=== PATIENT | female | born 1965 | race Caucasian/White ===

== ENCOUNTER → 2016-06-23 | Outpatient (CLI) | payer BC ==
[~2016-06-23] VITALS: Ht 175.3 cm; Wt 77.1 kg
[~2016-06-23] MED LIST: BUPR150T3 PO; CLAR5TAB PO; FLUT1SPR2; LOSA25TA8 PO; NAPR500T PO; NS 1,000 ML IV SCH; PROPOFOL 200 MG/20 ML VIAL As Ordered ONE; TRAZ50TA4 PO; TYLE325T5 PO; [UNRECOGNIZED DRUG - CODE] PO
--- NOTE | 2016-06-23 08:58 | ROOR ---
Patient Name: Shauna Gifford Procedure Date: 06/23/2016 8:38 AM Date of : 1965 Age: 50 Room: [facility] Gender: Female Note Status: Finalized Procedure: Colonoscopy to Cecum Indications: Screening for colorectal malignant neoplasm Providers: Erasmo Lin MD Referring MD: [facility], Admin. Requesting Provider: Medicines: Monitored Anesthesia Care Complications: No immediate complications. Procedure: Pre-Anesthesia Assessment: - The heart rate, respiratory rate, oxygen saturations, blood pressure, adequacy of pulmonary ventilation, and response to care were monitored throughout the procedure. The Colonoscope was introduced through the anus and advanced to the cecum, identified by appendiceal orifice and ileocecal valve. The colonoscopy was performed without difficulty. The patient tolerated the procedure well. The quality of the bowel preparation was excellent. Findings: The perianal and digital rectal examinations were normal. Non-bleeding internal hemorrhoids were found during retroflexion. The hemorrhoids were small and Grade I (internal hemorrhoids that do not prolapse). Scattered small-mouthed diverticula were found in the recto-sigmoid colon, sigmoid colon and descending colon. The exam was otherwise without abnormality on direct and retroflexion views. Impression: - Non-bleeding internal hemorrhoids. - Diverticulosis in the recto-sigmoid colon, in the sigmoid colon and in the descending colon. - The examination was otherwise normal on direct and retroflexion views. - No specimens collected. - The exam was otherwise normal to the cecum. Recommendation: - Patient has a contact number available for emergencies. The signs and symptoms of potential delayed complications were discussed with the patient. Return to normal activities tomorrow. Written discharge instructions were provided to the patient. - Discharge patient to home. - Continue present medications. - Repeat colonoscopy in 10 years for screening purposes. - Return to referring physician. - The findings and recommendations were discussed with the patient's family. Erasmo Lin MD Erasmo Lin MD 06/23/2016 8:57:50 AM This report has been signed electronically. Number of Addenda: 0 Note Initiated On: 06/23/2016 8:38 AM Estimated Blood Loss: Estimated blood loss: none.
[2016-06-23 09:20] VITALS: BP 138/98
== END ==
LOC: M OPP 07:49
PROVIDERS: ATTEND Internal Medicine Gastroenterology
DX: Z12.11 Encounter for screening for malignant neoplasm of colon (principal); K64.0 First degree hemorrhoids; K57.30 Diverticulosis of large intestine without perforation or abscess without bleeding; Z88.5 Allergy status to narcotic agent
CPT/HCPCS: 99156; G0121

== ENCOUNTER 2020-12-20 00:26 | Emergency (ER) | payer BC ==
[~2020-12-20] VITALS: Ht 175.3 cm; Wt 86.4 kg
[~2020-12-20 00:26] MED LIST changes: +BUPR150T12 PO; -BUPR150T3 PO; +D32000CA PO; +LOSA25TA14 PO; -LOSA25TA8 PO; +NAPR-837 PO; -NAPR500T PO; -NS 1,000 ML IV SCH; -PROPOFOL 200 MG/20 ML VIAL As Ordered ONE; +TRAZ-252 PO; -TRAZ50TA4 PO; -[UNRECOGNIZED DRUG - CODE] PO
[2020-12-20] MEDS ORDERED: fentaNYL 100 MCG/2 ML INJECTION (J3010) IV ONE (00:45)
--- NOTE | 2020-12-20 03:16 | REPVR ---
PROCEDURE INFORMATION: Exam: XR Chest Exam date and time: 12/20/20 (1:17am) Age: 55 years old Clinical indication: Trauma TECHNIQUE: Imaging protocol: Portable CXR Views: 1 view COMPARISON: Portable CXR of 01/27/15 FINDINGS: Lungs: Unremarkable. No consolidation. Pleural spaces: Unremarkable. No pleural effusions. No pneumothorax. Heart/Mediastinum: Unremarkable. No cardiomegaly. Bones/joints: Unremarkable. IMPRESSION: No acute findings. Lung pfeiffer remain clear. Electronically signed by: Kaleigh Beltrán On 12/20/2020 03:15:39 AM
[2020-12-20 03:30] VITALS: BP 114/73
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
== END 2020-12-20 03:38 | disposition short-term general hospital (02) ==
LOC: M ED 00:26
DX: S83.104A Unspecified dislocation of right knee, initial encounter (principal); W23.0XXA Caught, crushed, jammed, or pinched between moving objects, initial encounter; Y92.814 Boat as the place of occurrence of the external cause; I10 Essential (primary) hypertension; F33.9 Major depressive disorder, recurrent, unspecified; F41.9 Anxiety disorder, unspecified; Z88.5 Allergy status to narcotic agent; Z79.899 Other long term (current) drug therapy
CPT/HCPCS: 71045; 73552; 73590; 96374; 99285; J3010